=== PATIENT | female | born 1935 | race Caucasian/White ===

== ENCOUNTER 2017-10-16 16:27 | Emergency (ER) | payer MEDICARE, OTHER ==
[2017-10-16] MEDS ORDERED: Meclizine HCl 25 MG TAB ONE (18:15)
[2017-10-16] MEDS ORDERED: Ondansetron ODT 4 MG TAB ONE (18:15)
[2017-10-16 18:26] LABS: Bilirubin Negative (Negative); Blood, Urine Negative (Negative); Clarity Clear (Clear); Glucose, Urine (Dipstick) Negative (Negative); Leukocyte Negative (Negative); Nitrite Negative (Negative); Protein, Urine (Dipstick) Negative (Neg-Trace); Specific Gravity, Urine 1.015 (1.005-1.030); Urobilinogen 0.2 mg/dL (0.2-1.0); pH, Urine 7.5 (5.0-9.0)
--- NOTE | 2017-10-16 19:05 | CT ---
CT HEAD WITHOUT CONTRAST: 10/16/2017 HISTORY: Dizziness. COMPARISON: None. TECHNIQUE: Serial axial CT imaging at 5 mm intervals, from the vertex through the skull base, without contrast. FINDINGS: The imaged paranasal sinuses and mastoid air cells are well aerated. No displaced calvarial fracture . No intracranial hemorrhage or midline shift. There is periventricular, deep, and subcortical white matter hypodensity, with moderate diffuse cereb ral volume loss. IMPRESSION: Cerebral volume loss and evidence of small vessel ischemic disease. No intracranial hemorrhage. POS: CHERYL
[2017-10-16 19:06] LABS: #Basophils 0.1 thou/uL (0.0-0.2); #Eosinphils 0.3 thou/uL (0.0-0.7); #Lymphocytes 1.7 thou/uL (1.20-3.40); #Monocytes 0.4 thou/uL (0.11-0.59); #Neutrophils 1.7 thou/uL (1.40-6.50); %Basophils 2.1 % (0.0-1.0); %Eosinophils 6.4 % (0.0-10.0); %Lymphocytes 40.9 % (21.0-51.0); %Neutrophils 40.5 % (42.0-75.0); Mean Corpuscular HGB CONC 32.3 g/dL (32.0-36.0); Mean Corpuscular Hemoglobin 28.6 pg (27.0-31.0); Mean Corpuscular Volume 88.6 fL (78.0-98.0); Platelet Count 189 thou/uL (130-400); RBC Distribution Width 12.8 % (11.5-14.5); Red Blood Cell (RBC) Count 4.89 mill/uL (4.20-5.40); White Blood Cell (WBC) Count 4.1 thou/uL (4.8-10.8)
[2017-10-16 19:09] LABS: PTT 30.3 SEC (22.9-36.1); Prothrombin Time 13.1 SEC (12.0-14.7)
[2017-10-16 19:10] LABS: RBC/HPF None Seen HPF (0-3)
[2017-10-16 19:11] LABS: Bacteria/HPF None Seen HPF (None Seen); Squamous Epithelial 0-3 HPF (0-3); WBC/HPF 0-3 HPF (0-3)
--- NOTE | 2017-10-16 19:11 | RAD ---
FRONTAL RADIOGRAPH CHEST: 10/16/2017 HISTORY: Syncope. Atrial fibrillation. COMPARISON: 04/28/2017 FINDINGS: Heart and mediastinal contours are stable. A loop recorder overlies the left costophrenic angle. Th e lungs are mildly hyperinflated with diffuse increased linear interstitial density, stable. Stable postoperative anchors overly the right humeral head. IMPRESSION: Chronic findings as described above. No acute findings are seen. POS: CHERYL
[2017-10-16 19:20] LABS: ALT (SGPT) 14 U/L (8-55); AST (SGOT) 20 U/L (5-34); Albumin 4.1 g/dL (3.4-4.8); Alkaline Phosphatase 99 U/L (40-150); Anion Gap 17 mmol/L (10-20); BUN (Urea Nitrogen) 16 mg/dL (9.8-20.1); Bilirubin, Total 1.2 mg/dL (0.2-1.2); Calc. Creatinine Clearance 0 mL/min (70-130); Calcium 9.4 mg/dL (7.8-10.44); Carbon Dioxide 25 mmol/L (23-31); Chloride 106 mmol/L (98-107); Estimated GFR-MDRD 68; Globulin 2.5 g/dL (2.4-3.5); Glucose 80 mg/dL (83-110); Protein, Total 6.6 g/dL (6.0-8.3); Sodium 144 mmol/L (136-145)
[2017-10-16 19:22] LABS: CKMB 2.2 ng/mL (0-6.6); Troponin I Less than 0.010 ng/mL (< 0.028)
== END 2017-10-16 22:50 | disposition home or self-care (01) ==
LOC: MADERS 16:27
DX: R55 Syncope and collapse (principal); E03.9 Hypothyroidism, unspecified; I10 Essential (primary) hypertension; I48.91 Unspecified atrial fibrillation; Z79.899 Other long term (current) drug therapy
CPT/HCPCS: 70450; 71045; 82553; 83880; 84443; 84484; 85025; 85610; 85730; 87086; 93005; Q0162

== ENCOUNTER 2018-11-08 15:43 | Emergency (ER) | payer MEDICARE, OTHER ==
[~2018-11-08 15:43] MED LIST: Iopamidol 370 76% 125 ML VIAL FS ONE
[2018-11-08 16:11] LABS: #Basophils 0.1 thou/uL (0.0-0.2); #Eosinphils 0.2 thou/uL (0.0-0.7); #Lymphocytes 1.6 thou/uL (1.20-3.40); #Monocytes 0.4 thou/uL (0.11-0.59); #Neutrophils 3.7 thou/uL (1.40-6.50); %Basophils 1.3 % (0.0-1.0); %Eosinophils 3.3 % (0.0-10.0); %Lymphocytes 27.1 % (21.0-51.0); %Monocytes 6.4 % (0.0-10.0); %Neutrophils 61.9 % (42.0-75.0); Hemoglobin 13.6 g/dL (12.0-16.0); Mean Corpuscular HGB CONC 31.8 g/dL (32.0-36.0); Mean Corpuscular Hemoglobin 29.3 pg (27.0-31.0); Mean Corpuscular Volume 92.1 fL (78.0-98.0); Mean Platelet Volume 6.8 fL (7.4-10.4); Platelet Count 250 thou/uL (130-400); RBC Distribution Width 12.1 % (11.5-14.5); Red Blood Cell (RBC) Count 4.65 mill/uL (4.20-5.40); White Blood Cell (WBC) Count 5.9 thou/uL (4.8-10.8)
[2018-11-08] MEDS ORDERED: Sodium Chloride 0.9% 500 ML ONE (16:12)
[2018-11-08 16:26] LABS: ALT (SGPT) 94 U/L (8-55); AST (SGOT) 207 U/L (5-34); Albumin 3.9 g/dL (3.4-4.8); Alkaline Phosphatase 144 U/L (40-150); Anion Gap 16 mmol/L (10-20); BUN (Urea Nitrogen) 16 mg/dL (9.8-20.1); Bilirubin, Total 1.1 mg/dL (0.2-1.2); Calc. Creatinine Clearance 0 mL/min (70-130); Calcium 8.8 mg/dL (7.8-10.44); Carbon Dioxide 22 mmol/L (23-31); Chloride 107 mmol/L (98-107); Estimated GFR-MDRD 48; Globulin 2.2 g/dL (2.4-3.5); Glucose 165 mg/dL (83-110); Potassium 3.9 mmol/L (3.5-5.1); Protein, Total 6.1 g/dL (6.0-8.3); Sodium 141 mmol/L (136-145)
[2018-11-08] MEDS ORDERED: Sodium Chloride 0.9% 1,000 ML ONE (16:32)
--- NOTE | 2018-11-08 17:02 | CT ---
Exam: CT brain PROVIDED CLINICAL HISTORY: Syncope COMPARISON: 10/05/2018 FINDINGS: The ventricular system is normal in size and morphology. No evidence for intracranial hemorrhage or mass effect. The extracranial soft tissues and osseous structures demonstrate no evidence for an acute abnormality. Chronic microvascular ischemic changes involving the cerebral white matter redemon strated. IMPRESSION: No evidence for intracranial hemorrhage or mass effect.
--- NOTE | 2018-11-08 17:17 | CT ---
EXAM: CT pulmonary angiogram with IV contrast and 3-D MIP reconstructions PROVIDED CLINICAL HISTORY: Dyspnea COMPARISON: 10/04/2018 FINDINGS: There is no evidence for central or segmental pulmonary embolus. The lungs are free of significant op acity. No pleural fluid or pneumothorax apparent. No evidence for thoracic lymph node enlargement. The airway appears patent and of normal caliber. The visualized portions of the upper abdomen demonst rate no acute findings. The osseous structures demonstrate no concerning lytic or blastic lesions. IMPRESSION: No evidence for central or segmental pulmonary embolus.
== END 2018-11-08 19:07 | disposition short-term general hospital (02) ==
LOC: MADERS 15:43
DX: I95.9 Hypotension, unspecified (principal); R55 Syncope and collapse; E66.9 Obesity, unspecified; I48.91 Unspecified atrial fibrillation; Z86.711 Personal history of pulmonary embolism; Z79.899 Other long term (current) drug therapy
CPT/HCPCS: 36415; 70450; 71275; 80053; 83605; 84484; 85025; 87040; 93005; 94760; 96360; 96361; J7050; Q9967

== ENCOUNTER 2023-02-22 14:34 | Emergency (ER) | payer MEDICARE | END 2023-02-22 16:10 | disposition home or self-care (01) | LOC: MADERS 14:34 | DX: L03.116 Cellulitis of left lower limb (principal); I10 Essential (primary) hypertension; Z86.711 Personal history of pulmonary embolism ==

== ENCOUNTER 2023-07-05 13:15 | Inpatient (IN) | payer MEDICARE ==
[2023-07-05] MEDS: Pregabalin 50 MG CAP PO SCH (16:43)
[2023-07-05] MEDS: Acetaminophen/Codeine 30-300mg Tablet PO SCH (16:43)
[2023-07-05] MEDS: Acetaminophen 325 MG TAB PO SCH (17:31)
[2023-07-05] MEDS: Atorvastatin Calcium 10 MG TAB PO SCH (21:10)
[2023-07-06] MEDS: Levothyroxine Sodium 100 MCG TAB PO SCH (05:00)
[2023-07-06] MEDS: Levothyroxine Sodium 50 MCG TAB PO SCH (05:01)
[2023-07-06] MEDS ORDERED: Ondansetron ODT 4 MG TAB PO PRN (05:52)
[2023-07-06] MEDS: Polyethylene Glycol 3350 17 GM Packet PO PRN (06:07)
[2023-07-06] MEDS: Amlodipine 5 MG TAB PO SCH (08:33)
[2023-07-06] MEDS: Acetaminophen/Codeine 30-300mg Tablet PO PRN (08:33)
[2023-07-06] MEDS: Senokot S 8.6-50 MG TAB PO SCH (08:34)
[2023-07-06] MEDS: Acetaminophen/Codeine 30-300mg Tablet PO SCH (12:15)
[2023-07-06] MEDS: Acetaminophen 325 MG TAB PO SCH (14:46)
[2023-07-06] MEDS: Cyclobenzaprine 10 MG TAB PO PRN (14:47)
[2023-07-07] MEDS: Pregabalin 50 MG CAP PO SCH (08:45)
[2023-07-08] MEDS: Polyethylene Glycol 3350 17 GM Packet PO SCH (09:07)
[2023-07-10] MEDS: Bisacodyl 10 MG SUPP PR PRN (05:35)
[2023-07-10] MEDS: Milk Of Magnesia 30 ML UDCUP PO SCH (14:22)
[2023-07-11 06:08] LABS: ALT (SGPT) 42 U/L (8-55); AST (SGOT) 30 U/L (5-34); Albumin 3.4 g/dL (3.4-4.8); Alkaline Phosphatase 153 U/L (40-110); Anion Gap 13 mmol/L (10-20); BUN (Urea Nitrogen) 16 mg/dL (9.8-20.1); Bilirubin, Total 1.3 mg/dL (0.2-1.2); Calc. Creatinine Clearance 76 mL/min (70-130); Calcium 8.7 mg/dL (7.8-10.44); Carbon Dioxide 25 mmol/L (23-31); Chloride 103 mmol/L (98-107); Estimated GFR 83; Globulin 2.5 g/dL (2.4-3.5); Glucose 112 mg/dL (83-110); Potassium 4.2 mmol/L (3.5-5.1); Protein, Total 5.9 g/dL (5.8-8.1); Sodium 137 mmol/L (136-145)
[2023-07-12 15:20] VITALS: BMI 29.5
[2023-07-12] MEDS: Bisacodyl 5 MG TAB PO PRN (17:26)
[2023-07-12] MEDS: Ibuprofen 400 MG TAB PO PRN (20:43)
[2023-07-14 20:19] VITALS: TEMP 98.1
[2023-07-15 07:02] VITALS: BP 140/86
== END 2023-07-15 16:31 | disposition home or self-care (01) | DRG 947 ==
LOC: MADMS 13:50
PROVIDERS: ADMIT Family Medicine; ATTEND Family Medicine
DX: R53.81 Other malaise (principal); I62.00 Nontraumatic subdural hemorrhage, unspecified; R53.1 Weakness; E03.9 Hypothyroidism, unspecified; E78.5 Hyperlipidemia, unspecified; R13.10 Dysphagia, unspecified; K59.00 Constipation, unspecified; G89.29 Other chronic pain; M54.9 Dorsalgia, unspecified; I48.91 Unspecified atrial fibrillation; Z98.890 Other specified postprocedural states; Z95.0 Presence of cardiac pacemaker; Z90.710 Acquired absence of both cervix and uterus; Z90.49 Acquired absence of other specified parts of digestive tract; Z79.899 Other long term (current) drug therapy; Z91.81 History of falling; Z79.01 Long term (current) use of anticoagulants
CPT/HCPCS: 36415; 80053